=== PATIENT | female | born 1940 | race Caucasian/White ===

== ENCOUNTER → 2016-11-08 | Outpatient (CLI) | payer MEDICARE ==
[~2016-11-08] MED LIST: ATENOLOL50 MG PO; BUMEX2 MG PO; CRESTOR PO; FENOFIBRATE145 M1 PO; GABAPENTIN300 MG PO; HYDROCORTISONE30 G1 EXT; IPRATR-ALBUTEROL3 ML INH; K-DUR10 MEQ PO; METFORMIN; NARATRIPTAN2.5 MG PO; OMEPRAZOLE40 M1 PO; PREMARIN1.25 MG DOB; PROAIR RESPICL90 MCG; REGLAN10 MG PO; SINGULAIR PO; SYMBICORT INH; TRAMADOL HCL50 M2 PO; VOLTAREN100 GM TOP
--- NOTE | ~2016-11-08 | NM22 ---
[facility] A Service of [facility] & [facility] RADIOLOGY TEXT RESULTS PATIENT: NINA CASTELLANO LOCATION: [facility] : 38 UNIT #: [id number] AGE: [address]: Jeremie Miller MD SEX: F ORDER DR: [id number] [facility] [address] [place], [place] [address] [id number] O MR#: [id number] Acc #: [id number] NAME: NINA CASTELLANO : 1940 SEX: F STUDY DATE/TIME: 11/08/2016 13:38 UNIT: [facility] ROOM: STUDY DESCRIPTION: HI Hepatobiliary W GB Pharm Attending Physician: Jeremie Miller M.D. Referring Physician: Jeremie Miller M.D. Ordering Physician: Jeremie Miller M.D. Primary Care Physician: Karen Disla [facility] MEDICAL IMAGING REPORT This report is preliminary unless electronic signature is present EXAM Hepatobiliary scan 11/08/2016 INDICATIONS Right upper quadrant pain with nausea and vomiting and weight loss that started over a 1 month ago. FINDINGS Imaging was obtained of the abdomen for 60 minutes after the IV administration of 6 mCi of technetium 99m - Choletec. Comparison made with gallbladder ultrasound focal obstructing masses 10/31/2016. There is prompt uptake by the liver with prompt excretion into the gallbladder and small bowel. There is no evidence of acute cholecystitis or biliary obstruction. Following the IV administration of 1.9 mcg of Kinevac, gallbladder ejection fraction is normal at 67%. IMPRESSION Normal hepatobiliary scan. Normal gallbladder ejection fraction of 67% after Kinevac stimulation. Dictated by... Maurice Hughes Jr., M.D. THIS IS AN ELECTRONICALLY VERIFIED REPORT Maurice Hughes Jr., M.D. at 11/09/2016 8:09 AM MYKEL/alysiar TD: 11/08/2016 17:00 JOB #: [id number] MEDICAL IMAGING REPORT COPY
== END | disposition home or self-care (01) ==
LOC: CNUC 11:40
DX: K31.84 Gastroparesis (principal); R10.11 Right upper quadrant pain; R12 Heartburn; R11.0 Nausea; R63.4 Abnormal weight loss; R19.4 Change in bowel habit; R19.7 Diarrhea, unspecified
CPT/HCPCS: 78227; A9537; J2805